=== PATIENT | male | born 1930 | race Caucasian/White ===

== ENCOUNTER → 2017-11-13 | Outpatient (CLI) | payer OTHER, MEDICARE ==
[~2017-11-13] MED LIST: ATENOLOL 50MG T50 M1 PO; CALCIUM + VIT1 EACH; CALCIUM 600 +1 EAC1 PO; CENTRUM SILVER1 EAC4 PO; COZAAR 25 MG TA25 M2 PO; DIABETA 5MG TABL5 MG PO; FISH OIL 1,2001 EAC4 PO; GLUCOPHAGE XR500 MG; GLUCOPHAGE500 MG PO; HYDROCODONE-AP1 EAC6 PO; LUTEIN20 M1; MINIPRIN81 MG PO; ODORLESS GARLI500 MG; OMEGA 3-6-9 CO1 EACH; OXYBUTYNIN 5 MG5 M2 PO; SIMVASTATIN40 MG PO; TAMSULOSIN HCL0.4 M1 PO; TRAVATAN 0.004%5 ML; TRAVATAN Z5 ML OPHTHALMIC; URECHOLINE 25 M25 M1 PO; VITAMIN D400 UNI1 PO
== END ==
LOC: HYPER 06:57
DX: E11.621 Type 2 diabetes mellitus with foot ulcer (principal); L97.521 Non-pressure chronic ulcer of other part of left foot limited to breakdown of skin; L97.511 Non-pressure chronic ulcer of other part of right foot limited to breakdown of skin; L89.891 Pressure ulcer of other site, stage 1; L84 Corns and callosities; E11.40 Type 2 diabetes mellitus with diabetic neuropathy, unspecified; I25.2 Old myocardial infarction; F03.90 Unspecified dementia, unspecified severity, without behavioral disturbance, psychotic disturbance, mood disturbance, and anxiety; Z85.46 Personal history of malignant neoplasm of prostate